=== PATIENT | female | born 1980 | race Caucasian/White ===

== ENCOUNTER 2016-06-09 01:44 | Emergency (ER) | payer OTHER ==
[~2016-06-09 01:44] MED LIST: NOMED
[2016-06-09 01:47] VITALS: BP 190/110; PULSE 75; RESP 16; O2SAT 96
--- NOTE | 2016-06-09 02:00 | ED.REPORT ---
HPI-Dental/Mouth Prob Date of Service Jun 09, 2016 ED Provider: Patricia Campo MD Pt is a 35 y/o female presenting to the ED c/o increased left lower dental pain onset 1900 today. The pt has had a broken tooth for quite some time but hasn't seen a dentist in over a year. She denies any known mechanism of injury or exacerbation today. She denies trouble breathing, trouble swallowing, fever, chills, throat or neck swelling. Nursing Notes Stated Complaint: TOOTH ACHE,EAR ACHE Chief Complaint: Dental Nursing Notes Reviewed: Yes Allergies: Coded Allergies: No Known Allergies (Verified , 03/28/16) Scheduled Penicillin V Potassium (Penicillin V Potassium) 500 Mg Tablet 500 MG PO QID Scheduled PRN Ibuprofen (Ibuprofen) 800 Mg Tablet 800 MG PO TID PRN PRN For Pain Miscellaneous Medications No Historical Medication (No Historical Medication) Ea General Time Seen by MD: 01:59 Chief Complaint Tooth pain Hx Obtained From: Patient Arrived By: Walk-in Onset Occurred: 5 - 8 hours ago Symptom Duration: Since onset Quality: Painful (left lower) Severity: Current: Moderate Severity: Maximum: Severe Recent Healthcare: Previous diagnosis Similar Sx Previous: Yes Past Medical History Past Medical History Left lower dental pain Past Surgical History None reported Smoking History Never Smoker Social History Alcohol Use: Denies alcohol use Ambulatory Status Independent Review of Systems Constitutional: Denies: Chills, Fever Ears / Nose / Throat: Reports: Toothache, Denies: Throat swelling, Tongue swelling Respiratory: Denies: Shortness of breath GI: Denies: Dysphagia Complete sys rev & neg: except as marked. Physical Exam Initial Vital Signs Vital Signs (First) Date Time Temp Pulse Resp B/P Pulse Ox O2 Delivery O2 Flow Rate FiO2 06/09/16 01:47 36.0 75 16 190/110 96 Room Air Initial VS: Reviewed, Vital signs abnormal Head / Eyes: Atraumatic, Normocephalic, PERRL Respiratory: Breath sounds normal, Clear to auscultation, No respiratory distress Cardiovascular: Regular rate & rhythm, Heart sounds normal, Intact distal pulses Abdomen / GI: Soft, Non-tender Extremities: Vascular intact, Neuro intact, No swelling, No tenderness Skin: Warm, Dry, No cyanosis Neurologic: Alert, Oriented, Nonfocal Psychiatric: Mood/affect normal, Behavior normal, Normal thought content ENT: Atraumatic, Airway patent, Mucous membranes moist, Pharynx NL Left TM normal Partially edentulous. Multiple carious teeth throughout. Soft submental and sublingual spaces. Posterior right mandibular molar completely rotten and broken off at the root. Molar just anterior to that filled and carious. Both are very tender to percussion. No surrounding erythema, edema, or fluctuance. Neck: Atraumatic, Supple, No meningismus, Full range of motion, No swelling Re-Eval/Medical Decision Med Decision/Clinical Course 35-year-old female with no past medical history here with dental pain. Differential diagnosis includes but is not limited to apical abscess versus gingivitis versus cracked tooth versus Kenneth's angina. She has soft sublingual and submental spaces, and her exam is not consistent with blood legs. She was given ibuprofen and penicillin in the emergency department, and discharged with same. She was also provided information about emergency dental services. She was given very strict return precautions and is amenable to discharge at this time with follow-up with dental. Re-Evaluation/Progress : Time of Eval: 02:20 Re-Evaluation/Progress Note: Pt rechecked. Informed pt of plan for treatment. Pt understands and agrees with plan for treatment. F/U and RTER warnings given. All questions addressed. Counseled Regarding: Diagnosis, Need for follow-up, When/why to return to ED Discharge & Departure Primary Impression: Dental caries Additional Impression: Pain, dental Disposition: Home Discharge Condition All VS Reviewed: Yes Condition: Stable Patient Instructions: Dental Caries (ED) Additional Instructions: Try clove oil on the affected tooth. It has been shown to be quite effective and sometimes works instantaneously. Take Ibuprofen 800 mg every 8 hours as needed for pain. Return to the emergency department for severe pain, trouble breathing, trouble swallowing, high fever, or for other concerning symptoms. See the information below for emergency dental work: Address and Contact information: [facility] [address], [place] [address] Hours of Operation: Wednesday to Wednesday 8:00 am to 5:00 pm Wednesday (pediatrics) 8:00 am to 5:00 pm For Appointments: [phone] 8:30 am to 4:30 pm Referrals: Josselyn Medley PA-C (PCP) Jazmine Attestation Portions of this note were transcribed by Shmuel Cooper. I, Dr. Campo personally performed the history, physical exam and medical decision-making; I reviewed and confirmed the accuracy of the information in the transcribed note. Signed by Jazmine Willoughby, 06/09/16 - [id number] copies to: Josselyn Medley PA-C, Rebecca A MD Jun 09, 2016 02:00 SHMUEL COOPER Jun 09, 2016 02:22
[2016-06-09] MEDS ORDERED: PENI500T PO (02:24)
[2016-06-09] MEDS ORDERED: IBUP800T28 PO (02:25)
[2016-06-09 02:42] VITALS: BP 178/99; PULSE 75; RESP 16; O2SAT 96
== END 2016-06-09 02:43 | disposition home or self-care (01) ==
LOC: SED 02:00
DX: K02.9 Dental caries, unspecified (principal); K08.89 Other specified disorders of teeth and supporting structures

== ENCOUNTER 2016-09-16 14:20 | Emergency (ER) | payer OTHER ==
[~2016-09-16] VITALS: Ht 167.6 cm; Wt 81.8 kg
[~2016-09-16 14:20] MED LIST changes: +IBUP800T28 PO; +PENI500T PO
[2016-09-16 14:37] VITALS: BP 134/85; PULSE 103; RESP 18; O2SAT 97
--- NOTE | 2016-09-16 15:10 | ED.REPORT ---
HPI-General Illness Date of Service September 16, 2016 ED Provider: Ricardo Blair MD Patient is a 36 year old female who presents to the ED complaining of sharp neck pains that radiate to her head onset today. Associated symptoms include myalgia, cough, rhinorrhea, and fever onset 2 days ago. She denies headache, abdominal pain, vomiting, sore throat or any other symptoms. She has been taking Ibuprofen to manage her symptoms. She has had 2, 800 mg doses today. Nursing Notes Stated Complaint: SHOOTING PAIN FROM NECK UP HEAD Chief Complaint: Respiratory Complaints Nursing Notes Reviewed: Yes Allergies: Coded Allergies: No Known Allergies (Verified , 09/16/16) Scheduled Azithromycin (Zithromax (Z-Dilan)) 250 Mg Tablet 250 MG PO DIRECTED Take two tablets by mouth on day 1, then take one tablet daily on days 2 through 5. Scheduled PRN Benzonatate (Tessalon Perle) 100 Mg Capsule 100 MG PO TID PRN PRN For Cough Ibuprofen (Ibuprofen) 800 Mg Tablet 800 MG PO TID PRN PRN For Pain Miscellaneous Medications No Historical Medication (No Historical Medication) Ea General Time Seen by MD: 15:04 Chief Complaint Multip medical complaints Hx Obtained From: Patient Arrived By: Walk-in Sudden in Onset?: Yes Onset Occurred: 2 days ago Past Medical History Past Medical History Left lower dental pain Past Surgical History None reported Smoking History Current Every Day Smoker Social History Alcohol Use: 1-3 per day Drug Use: THC Ambulatory Status Independent Review of Systems Full Review of Systems Constitutional: Reports: Fever Ears / Nose / Throat: Denies: Sore throat Respiratory: Reports: Non-productive cough GI: Denies: Abdominal pain, Vomiting Musculoskeletal: Reports: Myalgia, Neck pain Allergy / Immune: Reports: Rhinorrhea Neurologic: Denies: Headache Complete sys rev & neg: except as marked. Physical Exam Vital Signs Vital Signs Date Time Temp Pulse Resp B/P Pulse Ox O2 Delivery O2 Flow Rate FiO2 09/16/16 15:55 92 16 127/79 96 Room Air 09/16/16 14:37 37.6 103 18 134/85 97 Room Air Initial VS: Reviewed General/Constitutional: Well-developed, Well-nourished Head / Eyes: Atraumatic, Normocephalic Neck: Full range of motion Skin: Warm, Dry Neurologic: Alert, Oriented, Nonfocal Psychiatric: Mood/affect normal, Behavior normal, Normal thought content ENT: Mucous membranes moist Mild tonsular erythema Uvula midline no stridor no exudate normal phonation Respiratory / Chest: Breath sounds NL, Breath sounds = bilat, No respiratory distress Cardiovascular: Heart rate NL, Regular rhythm, Heart sounds NL, No gallop, No murmurs, No rubs, Peripheral circulation NL Abdomen: Soft, Non-tender, No distention Lower Extremity / Pelvis / MS: No swelling, Non-tender Interpretation & Diagnostics Lab Results Interpretation Test 09/16/16 16:50 Urine HCG, Qualitative Negative (Negative) Lab Results Interpretation: Urine negative X-Ray Chest Interpretation Chest Xray Interpretation: IMPRESSION: Left basilar pneumonia. Dictated by: Noel Spencer M.D. on 09/16/2016 at 14:54 Approved by: Noel Spencer M.D. on 09/16/2016 at 14:55 View: AP & lat Interpretation / Wet Read by: Interpret - Radiologist Re-Eval/Medical Decision Med Decision/Clinical Course Patient is a generally healthy 36-year-old female who presents with 2 days of subjective fever, cough and URI symptoms. Her son has also had similar symptoms. Here in the emergency department she is afebrile with stable vital signs. Chest x-ray demonstrates a small left basilar pneumonia. Patient is otherwise stable and in no apparent distress. I prescribed a course of oral azithromycin and Tessalon for cough. I feel the patient is appropriate for outpatient management. Prior to discharge follow-up and return precautions were reviewed in detail with the patient who verbalized understanding and agreement with the plan. The patient was discharged in stable condition. Time of Eval: 16:23 Re-Evaluation/Progress Note: Discussed plan for discharge. Patient understands and agrees with plan. All questions addressed at this time Counseled Regarding: Diagnosis, Lab results, Need for follow-up, When/why to return to ED Discharge & Departure Primary Impression: Pneumonia Pneumonia type: due to unspecified organism Laterality: unspecified laterality Lung location: unspecified part of lung Qualified Code: J18.9 - Pneumonia, unspecified organism Additional Impression: Cough Disposition: Home Discharge Condition All VS Reviewed: Yes Condition: Improved Additional Instructions: Thank you for seeking care at the emergency room. It is difficult for us to make definitive diagnoses in the ED but we believe that you are experiencing a pneumonia. Our primary goal today in the ED was to evaluate you for any life-threatening conditions. Your evaluation was reassuring. You will be discharged with a prescription for azithromycin and Tessalon. Drink plenty of fluids. You may take over the counter Sudafed for your congestion. You should follow-up with your primary doctor in the next week. You should return to the ED immediately if you develop high fevers, vomiting, cough, shortness of breath, chest pain, lightheadedness, weakness or any other concerning signs or symptoms. Thank you for letting us partake in your care today. Referrals: Josselyn Medley PA-C (PCP) Scribe Attestation Portions of this note were transcribed by Rashmi Tejada. I, Dr. Blair personally performed the history, physical exam and medical decision-making; I reviewed and confirmed the accuracy of the information in the transcribed note. Signed by: Rashmi Tejada 09/16/16, [id number] copies to: Josselyn Medley PA-C, Beck O MD September 16, 2016 15:10 RASHMI TEJADA September 16, 2016 16:11
[2016-09-16 15:55] VITALS: BP 127/79; PULSE 92; RESP 16; O2SAT 96
--- NOTE | 2016-09-16 15:57 | DRSVH ---
PROCEDURE: X-RAY CHEST, TWO VIEWS ([id number]) INDICATIONS: cough TECHNIQUE: 2 views of the chest were acquired. COMPARISON: None. FINDINGS: Surgical changes and devices: None. Lungs and pleura: There is a moderate-sized area of airspace disease within the left infrahilar regio n, likely involving the lingula. No lobar consolidation, large effusion, or pneumothorax is evident. Mediastinum: Mediastinal contours are normal. Heart size is normal. Bones and chest wall: No suspicious bony abnormalities. Soft tissues appear unremarkable. IMPRESSION: Left basilar pneumonia. Dictated by: Noel Spencer M.D. on 09/16/2016 at 14:54 Approved by: Noel Spencer M.D. on 09/16/2016 at 14:55
[2016-09-16] MEDS ORDERED: BENZ-12 PO (16:14)
[2016-09-16] MEDS ORDERED: AZIT250T4 PO (16:15)
== END 2016-09-16 16:42 | disposition home or self-care (01) ==
LOC: SED 14:20
DX: J18.9 Pneumonia, unspecified organism (principal); F17.200 Nicotine dependence, unspecified, uncomplicated

== ENCOUNTER 2016-09-17 15:15 | Emergency (ER) | payer OTHER ==
[~2016-09-17] VITALS: Ht 167.6 cm; Wt 81.8 kg
[~2016-09-17 15:15] MED LIST changes: +AZIT250T4 PO; +BENZ-12 PO; -PENI500T PO
[2016-09-17 15:39] VITALS: BP 136/85; PULSE 97; RESP 24; O2SAT 95
--- NOTE | 2016-09-17 16:23 | ED.REPORT ---
HPI-Head Prob / Injury Date of Service September 17, 2016 ED Provider: Doc,Ed MD History of Present Illness: bad shooting pains on both sides of head, no vomiting, no prior hx. alex is primary care. normally healthy no hx of migraines. took ibuprofen at 1 pm 600 mg. has pneumonia. 11/23 coughing. pains happen without any relation to coughing but she reports pain was decreased when she did not cough for a few hours last evening. Nursing Notes Stated Complaint: PNEUMONIA, SEVERE HEAD PAINS Chief Complaint: Respiratory Distress Nursing Notes Reviewed: Yes Allergies: Coded Allergies: No Known Allergies (Verified , 09/17/16) Scheduled Azithromycin (Zithromax (Z-Dilan)) 250 Mg Tablet 250 MG PO DIRECTED Take two tablets by mouth on day 1, then take one tablet daily on days 2 through 5. Scheduled PRN Benzonatate (Tessalon Perle) 100 Mg Capsule 100 MG PO TID PRN PRN For Cough Ibuprofen (Ibuprofen) 800 Mg Tablet 800 MG PO TID PRN PRN For Pain Miscellaneous Medications No Historical Medication (No Historical Medication) Ea General Time Seen by Provider: 16:23 Chief Complaint Other (head pain) Hx Obtained From: Patient Onset Occurred: 5 days ago Symptom Duration: Since onset Past Medical History Past Medical History Left lower dental pain Past Surgical History None reported Smoking History Current Every Day Smoker Social History Alcohol Use: 1-3 per day Drug Use: THC Occupation single , lives with 3 children all boys, no work or school 09/17/2016 Ambulatory Status Independent Review of Systems Basic Review of Systems : No dysuria, No frequency Hematologic: No bleeding, No bruising Psychiatric: Normal thought content Physical Exam Initial Vital Signs Vital Signs (First) Date Time Temp Pulse Resp B/P Pulse Ox O2 Delivery O2 Flow Rate FiO2 09/17/16 15:39 38.6 97 24 136/85 95 Room Air Initial VS: Reviewed, Vital signs abnormal Respiratory: Breath sounds normal, Clear to auscultation, No respiratory distress Cardiovascular: Regular rate & rhythm, Heart sounds normal, Intact distal pulses Abdomen / GI: Soft, Non-tender, No guarding, No rebound, No distention Back: No CVA tenderness Lymphatic: No lymphadenopathy Extremities: Vascular intact, Neuro intact, No swelling, No tenderness Skin: Warm, Dry, No cyanosis Psychiatric: Mood/affect normal, Behavior normal, Normal thought content General/Constitutional: Awake, Alert, No acute distress, Well appearing, Well developed, Well hydrated Head / Eyes: Atraumatic, Normocephalic, PERRL, EOMI ENT: Atraumatic, Airway patent, Mucous membranes moist, Pharynx NL patient reports the pain shoots up bilateral sides from the base of her head up Neck: Atraumatic, Supple, No meningismus, Full range of motion, No adenopathy Neurologic: Oriented X3, Speech NL, No motor deficits, No sensory deficits, CN II - XII intact Respiratory / Chest: Atraumatic decreased breath sounds bilateral , with coarse rales on left side Cardiovascular: Heart rate NL, Regular rhythm, Heart sounds NL Interpretation & Diagnostics Interpretation & Diagnostics: PROCEDURE: CT ANGIO CHEST PULMONARY EMBOLISM ([id number]) INDICATIONS: sob TECHNIQUE: After the administration of intravenous contrast, 2 mm thick sections acquired from the pulmonary apices to the posterior costophrenic angles. 3-dimensional maximum intensity projection (MIP) coronal and sagittal reformats were then acquired through the thorax. For radiation dose reduction, the following was used: automated exposure control, adjustment of mA and/or kV according to patient size. COMPARISON: [facility], CR, XR CHEST 2VW, 09/16/2016, 15:44. FINDINGS: Image quality: Good Pulmonary arteries: Pulmonary arteries are normal in size, and demonstrate no intraluminal filling defects to suggest central pulmonary embolism. Lungs and pleura: Lungs show bilateral patchy areas of infiltrate involving the left lower lobe and left upper lobe the right lower lobe and right middle lobe. No effusion is seen.. No pleural effusions or pneumothorax. Central and peripheral airways are patent. Mediastinum: Heart size is normal, without pericardial effusion. There are prominent lymph nodes in the mediastinum and cristina consistent with inflammation. Thoracic aorta is normal in caliber and enhancement. Esophagus is normal in caliber, without hiatal hernia. Bones and chest wall: No suspicious bony lesions. Ribs and thoracic spine appear intact throughout. Thyroid gland is within normal limits.. No axillary or supraclavicular adenopathy. Abdomen: Prominent diffuse fatty infiltration of the liver is present. Visualized upper abdominal solid organs otherwise appear normal in the early arterial phase of enhancement. IMPRESSION: 1. Prominent patchy areas of infiltrate consistent with pneumonia. 2. No effusions are seen but inflammatory lymph node changes are seen in the cristina and mediastinum. 3. No evidence for pulmonary embolus. Dictated by: Jerrod Zhou M.D. on 09/17/2016 at 17:48 Approved by: Jerrod Zhou M.D. on 09/17/2016 at 17:54 Lab Results Interpretation Result Diagram: 09/17/16 1615 09/17/16 1615 Test 09/17/16 16:15 White Blood Count 8.1th/mm3 (3.8-10.1) Red Blood Count 4.55mil/mm3 (3.90-5.20) Hemoglobin 13.8g/dL (12.0-15.6) Hematocrit 40.7% (35.0-46.0) Mean Corpuscular Volume 89.5fL (81-100) Mean Corpuscular Hemoglobin 30.3pg (27.0-35.0) Mean Corpuscular Hemoglobin Concent 33.9% (32.0-37.0) Red Cell Distribution Width 12.5% (12.3-15.4) Platelet Count 170bil/L (150-400) Neutrophils (%) (Auto) 81.1% (40-74) Lymphocytes (%) (Auto) 11.8% (14-46) Monocytes (%) (Auto) 6.0% (4-12) Eosinophils (%) (Auto) 0.1% (0-5) Basophils (%) (Auto) 0.4% (0-3) Sodium Level 133mEq/L (134-144) Potassium Level 3.5mEq/L (3.5-5.2) Chloride Level 94mEq/L (97-108) Carbon Dioxide Level 17mmol/L (18-29) Blood Urea Nitrogen 12mg/dL (6-20) Creatinine 0.65mg/dL (0.57-1.00) Estimat Glomerular Filtration Rate 149mL/min (>59) Glucose Level 123mg/dL (60-99) Lactic Acid Level 1.1mmol/L (0.4-2.0) Calcium Level 9.1mg/dL (8.5-10.1) Magnesium Level 1.8mg/dL (1.6-2.6) Total Bilirubin 0.5mg/dL (0.0-1.2) Aspartate Amino Transf (AST/SGOT) 41U/L (0-50) Alanine Aminotransferase (ALT/SGPT) 44U/L (0-32) Alkaline Phosphatase 76U/L (25-150) Total Protein 8.6g/dL (6.4-8.4) Albumin 4.4g/dL (3.4-5.0) Hold Power Top Tube Received (Received) CT Head Interpretation PROCEDURE: CT BRAIN WITHOUT CONTRAST ([id number]) INDICATIONS: head pain TECHNIQUE: Noncontrast 4.5 mm thick angled axial sections acquired from the foramen magnum to the vertex, with coronal reformats. COMPARISON: None. FINDINGS: Image quality: Excellent. CSF spaces: Basal cisterns are patent. No extra-axial fluid collections. Ventricles are normal in size and shape. Brain: No midline shift. No intracranial masses or hemorrhage. Amador-white matter interface is normal. Skull and face: Calvarium and visualized facial bones are intact, without suspicious lesions. Sinuses: Visualized sinuses and mastoids are clear. IMPRESSION: No abnormality is found on the CT of the head without contrast. Cause of pain is not identified. Dictated by: Jerrod Zhou M.D. on 09/17/2016 at 17:46 Approved by: Jerrod Zhou M.D. on 09/17/2016 at 17:48 CT C-Spine Interpretation PROCEDURE: X-RAY CERVICAL SPINE, 2 OR 3 VIEWS INDICATIONS: pain from neck up TECHNIQUE: 4 view(s) of the cervical spine were acquired. COMPARISON: None. FINDINGS: Bones: No fractures or dislocations to the C7-T1 level. The lateral masses of C1 appear intact on the odontoid view. No suspicious bony lesions. Soft tissues: No prevertebral soft tissue swelling. IMPRESSION: There is loss of lordosis. The cervical spine is otherwise considered normal. Dictated by: Jerrod Zhou M.D. on 09/17/2016 at 17:44 Approved by: Jerrod Zhou M.D. on 09/17/2016 at 17:45 Re-Eval/Medical Decision Med Decision/Clinical Course 36 year old female returns for bilateral head pain and shortness of breath. Patient seen last night in the ER and dx with pneumonia. Provided zpack and emily gonzalez. Labs are unremarkable. CT of the chest shows multiple sites of pneumonia. Patient with improvement after a nebulizer treatment and ativan. Offered patient admission, at this time she desires to go home. Advised she can return if worse. Provided hydrocodone for cough control and combivent inhaler. Patient does not have a PEbut exam is consistent with bilateral pneumonia. Discharge & Departure Primary Impression: Pneumonia Laterality: bilateral Lung location: unspecified part of lung Disposition: Home Patient Instructions: Community-acquired Pneumonia (ED) Additional Instructions: The CT shows that you have the pneumonia in the left lower lobe and the left upper lobe and the right lower lobe and the right middle lobe. Continue with the antibiotics. Use the inhaler up to 6 times a day. Push fluids. Use hydrocodone 1 up to 2 times a day to decrease cough. REturn to the ER if vomiting, unable to hold down medication, fever not responsive to ibuprofen, or any other concerns. Use ibuprofen 800 mg 3 times a day to decrease fever. Your vitals are stable at this time. There was no elevation in white count. Please follow with Josselyn Medley on Wednesday or Wednesday. The ER is back up for the next few days. If worse, return. Referrals: Josselyn Medley PA-C (PCP) EDSupervising Provider for APC: Jhony Damon MD copies to: Josselyn Medley PA-C, Sue ARNP September 17, 2016 16:23
[2016-09-17] MEDS ORDERED: Albuterol-Ipratropium 3 mL Inhalation Solution NEB ONE (16:35)
[2016-09-17] MEDS ORDERED: 0.9% Sodium Chloride 1,000 ML IV ONE (16:35)
[2016-09-17 16:37] LABS: BASOPHILS % (AUTO) 0.4 % (0-3); EOSINOPHILS % (AUTO) 0.1 % (0-5); Mean Corpuscular Hemoglobin 30.3 pg (27.0-35.0); Mean Corpuscular Volume 89.5 fL (81-100); NEUTROPHILS % (AUTO) 81.1 % (40-74); Platelet Count 170 bil/L (150-400)
[2016-09-17 16:52] LABS: Magnesium 1.8 mg/dL (1.6-2.6)
[2016-09-17 16:53] VITALS: PULSE 93; RESP 20; O2SAT 97
--- NOTE | 2016-09-17 17:46 | DRSVH ---
PROCEDURE: X-RAY CERVICAL SPINE, 2 OR 3 VIEWS INDICATIONS: pain from neck up TECHNIQUE: 4 view(s) of the cervical spine were acquired. COMPARISON: None. FINDINGS: Bones: No fractures or dislocations to the C7-T1 level. The lateral masses of C1 appear intact on t he odontoid view. No suspicious bony lesions. Soft tissues: No prevertebral soft tissue swelling. IMPRESSION: There is loss of lordosis. The cervical spine is otherwise considered normal. Dictated by: Jerrod Zhou M.D. on 09/17/2016 at 17:44 Approved by: Jerrod Zhou M.D. on 09/17/2016 at 17:45
--- NOTE | 2016-09-17 17:50 | DRSVH ---
PROCEDURE: CT BRAIN WITHOUT CONTRAST ([id number]) INDICATIONS: head pain TECHNIQUE: Noncontrast 4.5 mm thick angled axial sections acquired from the foramen magnum to the vertex, with c oronal reformats. COMPARISON: None. FINDINGS: Image quality: Excellent. CSF spaces: Basal cisterns are patent. No extra-axial fluid collections. Ventricles are normal in size and shape. Brain: No midline shift. No intracranial masses or hemorrhage. Amador-white matter interface is norm al. Skull and face: Calvarium and visualized facial bones are intact, without suspicious lesions. Sinuses: Visualized sinuses and mastoids are clear. IMPRESSION: No abnormality is found on the CT of the head without contrast. Cause of pain is not iden tified. Dictated by: Jerrod Zhou M.D. on 09/17/2016 at 17:46 Approved by: Jerrod Zhou M.D. on 09/17/2016 at 17:48
--- NOTE | 2016-09-17 17:56 | DRSVH ---
PROCEDURE: CT ANGIO CHEST PULMONARY EMBOLISM ([id number]) INDICATIONS: sob TECHNIQUE: After the administration of intravenous contrast, 2 mm thick sections acquired from the pulmonary api emelina to the posterior costophrenic angles. 3-dimensional maximum intensity projection (MIP) coronal a nd sagittal reformats were then acquired through the thorax. For radiation dose reduction, the follo wing was used: automated exposure control, adjustment of mA and/or kV according to patient size. COMPARISON: [facility], CR, XR CHEST 2VW, 09/16/2016, 15:44. FINDINGS: Image quality: Good Pulmonary arteries: Pulmonary arteries are normal in size, and demonstrate no intraluminal filling d efects to suggest central pulmonary embolism. Lungs and pleura: Lungs show bilateral patchy areas of infiltrate involving the left lower lobe and l eft upper lobe the right lower lobe and right middle lobe. No effusion is seen.. No pleural effusion s or pneumothorax. Central and peripheral airways are patent. Mediastinum: Heart size is normal, without pericardial effusion. There are prominent lymph nodes in the mediastinum and cristina consistent with inflammation. Thoracic aorta is normal in caliber and enhanc ement. Esophagus is normal in caliber, without hiatal hernia. Bones and chest wall: No suspicious bony lesions. Ribs and thoracic spine appear intact throughout. Thyroid gland is within normal limits.. No axillary or supraclavicular adenopathy. Abdomen: Prominent diffuse fatty infiltration of the liver is present. Visualized upper abdominal alisha id organs otherwise appear normal in the early arterial phase of enhancement. IMPRESSION: 1. Prominent patchy areas of infiltrate consistent with pneumonia. 2. No effusions are seen but inflammatory lymph node changes are seen in the cristina and mediastinum. 3. No evidence for pulmonary embolus. Dictated by: Jerrod Zhou M.D. on 09/17/2016 at 17:48 Approved by: Jerrod Zhou M.D. on 09/17/2016 at 17:54
[2016-09-17] MEDS ORDERED: Albuterol-Ipratropium 120 Spray 4 Gm Inhaler INHALATION ONE (18:20)
[2016-09-17] MEDS ORDERED: Albuterol-Ipratropium 120 Spray 4 Gm Inhaler INHALATION SCH ×2 (18:30→21:30)
[2016-09-17 18:31] VITALS: BP 126/65; PULSE 99; RESP 16; O2SAT 94
[2016-09-17 19:01] VITALS: BP 126/65; PULSE 99; RESP 16; O2SAT 94
== END 2016-09-17 19:01 | disposition home or self-care (01) ==
LOC: SED 15:15
DX: J18.9 Pneumonia, unspecified organism (principal); F17.200 Nicotine dependence, unspecified, uncomplicated
CPT/HCPCS: 36415; 70450; 71275; 72040; 80053; 83605; 83735; 85025; 94640; 94664; 96361; 96374; 99285; J2060; J7030; J7620; Q9967